=== PATIENT | female | born 1945 | race Caucasian/White ===

== ENCOUNTER 2016-04-07 10:55 | Day surgery (SDC) | payer MEDICARE, OTHER ==
[~2016-04-07] VITALS: Ht 160 cm; Wt 60.8 kg
[2016-04-07 11:28] LABS: BASOPHILS 0.6 % (0.0-2.0); EOSINOPHILS 1.9 % (0-7); HEMATOCRIT 34.2 % (36.0-48.0); HEMOGLOBIN 10.5 g/dL (12-16); IMMATURE GRANULOCYTES 0.6 % (0-5); LYMPHOCYTES 34.8 % (15-50); MCH 27.1 pg (26.0-34.0); MCHC 30.7 g/dL (31.0-37.0); MCV 88.1 fL (80.0-100.0); MONOCYTES 17.5 % (2-11); NEUTROPHILS 44.6 % (40-80); PLATELET COUNT 214 10x3/uL (130-400); RBC 3.88 10x6/uL (4.00-5.40); RDW 21.2 % (11.5-14.5); WBC 4.8 10x3/uL (4.8-10.8)
[2016-04-07 11:41] LABS: ALBUMIN 3.3 g/dL (3.4-5.0); ANION GAP 9.4 mmol/L (8-16); BILIRUBIN - TOTAL 0.3 mg/dL (0.2-1.3); CALCIUM 9.3 mg/dL (8.5-10.1); CARBON DIOXIDE 30.7 mmol/L (21.0-32.0); POTASSIUM - SERUM 3.1 mmol/L (3.5-5.1); PROTEIN - SERUM 8.2 g/dL (6.4-8.2)
[2016-04-07] MEDS ORDERED: AMITRIPTYLINE100 MG PO (11:46)
[2016-04-07] MEDS ORDERED: FOLATE0.4 MG PO (11:48)
[2016-04-07] MEDS ORDERED: METHOTREXATE2.5 MG PO (11:49)
[2016-04-07] MEDS ORDERED: HYDROCODONE-APA1 TAB PO (11:49)
[2016-04-07] MEDS ORDERED: PRINIVIL20 MG PO (11:49)
[2016-04-07] MEDS ORDERED: REQUIP1 MG PO (11:50)
[2016-04-07] MEDS ORDERED: CYCLOBENZAPRINE5 MG PO (11:51)
[2016-04-07] MEDS ORDERED: PROTONIX20 MG PO (11:53)
[2016-04-07 12:00] VITALS: BP 126/68; Ht 160 cm; Wt 60.8 kg
--- NOTE | 2016-04-07 16:21 | NUR ---
IV DC WITH CATHER TIP INTACT
--- NOTE | 2016-04-16 20:46 | OP ---
PATIENT NAME: LYDIA PHILLIP MEDICAL RECORD: [id number] :43 LOCATION:[facility] ADMISSION DATE: SURGEON: FLORECITA CAROLINA MD DATE OF OPERATION: 04/07/2016 PROCEDURE: 1. EGD with biopsy and duodenal stricture dilatation. 2. Colonoscopy with attempted fecal disimpaction. INDICATIONS: Ms. Phillip is a delightful 70-year-old woman who had a colonoscopy on 01/24/2016 (history of polyps) with findings showing a fecal impaction in the ascending colon/cecum; the impaction was so firm and solid. I was unable to remove it with biopsy forceps with repeated breakage with biopsy forceps or aggressive lavaging. She had an EGD on 02/01/2016 (symptoms of GE reflux and abdominal bloating) with findings showing small hiatal hernia, old food found in the stomach body and fundus and appeared to be a stenosis at the duodenal bulb apex, which did not permit the precluded passage of the scope. She had aspiration during the procedure and was admitted to [facility]. She had approximately 2-week hospitalization including therapeutic bronchoscopy. During her hospitalization, she had an air contrast upper GI on 02/09/2016 showing a small hiatal hernia, mild GE reflux, but no obvious duodenal stricture. CT scan of the abdomen and pelvis with contrast on 02/07/2016 showed extensive consolidation in the left lung base, trace left pleural effusion, hepatic steatosis, cholelithiasis, a grossly unremarkable appearance of the duodenum, nonobstructing right renal stone and a large amount of fecal material in the cecum. Prior to her hospitalization, she had had a Gastrografin enema on 01/25/2016 that showed no constricting or obstructing lesions detected, but there was residual stool in the colon, which decreased the sensitivity of exam. She presents for followup EGD and colonoscopy. PREMEDICATIONS: GETA. INSTRUMENT: Olympus video gastroscope, balloon dilator and colonoscope. PROCEDURE AND FINDINGS: After receiving informed consent, Ms. Phillip was intubated and sedated per anesthesia. The gastroscope was then introduced per orally and advanced into the duodenal bulb. The esophageal mucosa was without erythema or ulcers. At the GE junction was a nonobstructing Schatzki's ring. Small hiatal hernia is present. There are no lesions seen in the cardia, fundus or in the body of the stomach. There was a small amount of residual food present in the antrum. The pyloric channel was wide open and there were areas of small scarring in the antrum. Antral biopsies were obtained to rule out Helicobacter pylori. The apex of the duodenal bulb had significant narrowing that would not permit passage of the gastroscope, but when advancing the gastroscope up to the duodenal bulb outlet, the small bowel mucosa distally appeared normal and this area appeared to be consistent with a benign short stricture. The esophageal balloon dilator was passed through the narrowed stricture at the apex of the bulb and gently dilated to a 27-Kinyarwanda and then withdrawn. I was then able to pass the gastroscope through the short stricture and the second portion of duodenal mucosa appeared normal. The edge of the stricture was biopsied. Gastroscope was then withdrawn. She is prepared for colonoscopy. Digital rectal exam was performed that showed a few external hemorrhoidal tags, fissures, fistulas, slightly decreased sphincter tone and no palpable rectal masses. Colonoscope was introduced per rectally and advanced to the cecum. Again, noted was a firm fecal impaction obscuring view of the cecum, but the IC OPERATIVE REPORT [id number] NIX,LYDIA A valve was not obstructed by the fecal impaction. I was able to intubate the terminal ileum and the distal small bowel mucosa appeared normal. Multiple lavages and attempts to break up the stool "bezoar" were unsuccessful in dislodging and in moving the impaction. The colonoscope was then carefully withdrawn. There were no polyps or diverticula were appreciated in the colon. Retroflexion in rectum showed minimal internal hemorrhoids. There was a fair amount of stool scattered throughout the colon. Ms. Phillip tolerated the procedure well, no immediate complications. ASSESSMENT: 1. Nonobstructing Schatzki ring, esophageal Schatzki ring. 2. Small hiatal hernia. 3. 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 5. Continued fecal impaction. 6. Normal appearing terminal ileum. RECOMMENDATIONS: 1. Follow up histopathology. 2. Continue Protonix 40 mg twice a day. 3. MiraLax 1 dose b.i.d. 4. Surgical consultation regarding fecal impaction. TRANSINT:[id number] Voice Confirmation ID: [id number] DOCUMENT ID: [id number] FLORECITA CAROLINA MD at 2046 CC: BRIAN GUZMAN MD [id number] DICTATION DATE: 04/07/16 1545 SHOT EXAMINER: 04/07/162038 [facility] 04/07/16 [place] [id number] [place] [id number]
== END 2016-04-07 16:45 | disposition home or self-care (01) ==
LOC: D.OPS 10:55
PROVIDERS: Internal Medicine Gastroenterology
DX: K56.41 Fecal impaction (principal); K22.2 Esophageal obstruction; Z86.010 Personal history of colon polyps; K44.9 Diaphragmatic hernia without obstruction or gangrene; K31.1 Adult hypertrophic pyloric stenosis; K31.5 Obstruction of duodenum; K64.8 Other hemorrhoids